=== PATIENT | female | born 1985 ===

== ENCOUNTER 2021-06-21 16:16 | Observation (INO) ==
[2021-06-21 17:34] LABS: ABS Eosinophils 0.1 10^3/ul (0-0.6); ABS Lymphocytes 1.4 10^3/ul (1.0-4.8); ABS Monocytes 0.8 10^3/ul (0-0.8); ABS Neutrophils 6.9 10^3/ul (1.5-7.7); Eosinophil % 0.7 %; Hematocrit 35 % (35-47); Hemoglobin 12.2 g/dL (12.0-16.0); Lymphocyte % 14.9 %; Mean Corpuscular HGB Conc 34 g/dL (31-36); Mean Corpuscular Hemoglobin 31 pg (27-31); Mean Corpuscular Volume 90 fL (80-97); Mean Platelet Volume 7.5 fL (7.4-10.4); Platelet Count 200 10^3/uL (150-450); Red Blood Count 3.95 10^6 /uL (3.70-4.87); Red Cell Distribution Width 14 % (10-15); White Blood Count 9.1 10^3/uL (3.5-10.8)
[2021-06-21 17:53] LABS: ALT 20 U/L (7-52); AST 14 U/L (13-39); Albumin 4.3 g/dL (3.2-5.2); Albumin/Globulin Ratio 2.4 (1-3); Alkaline Phosphatase 47 U/L (35-149); Anion Gap 7 mmol/L (2-11); Blood Urea Nitrogen 19 mg/dL (6-24); CO2 Carbon Dioxide 24 mmol/L (22-32); Calcium 9.2 mg/dL (8.6-10.3); Chloride 106 mmol/L (101-111); EGFR African American 120.5 (>60); EGFR Non-African American 99.6 (>60); Globulin 1.8 g/dL (2-4); Glucose 95 mg/dL (70-100); Potassium 3.8 mmol/L (3.5-5.0); Sodium 137 mmol/L (135-145); Total Protein 6.1 g/dL (6.4-8.9)
[2021-06-21 20:02] LABS: C Reactive Protein < 1.00 mg/L (<8.01)
[2021-06-21 20:28] LABS: Vitamin B12 464 pg/mL (180-914)
[2021-06-21 22:31] LABS: Erythrocyte Sed Rate 5 mm/Hr (0-19)
[2021-06-21 22:32] LABS: Rapid COVID-19 Molecular Undetected (Undetected)
[2021-06-21 23:47] LABS: Urine Benzodiazepine Screen None Detected (None Detect); Urine Cannabinoids Screen Presumptive Positive (None Detect); Urine Opiates Screen None Detected (None Detect)
[2021-06-22 00:13] LABS: Alcohol, S < 13 mg/dL (<13)
[2021-06-22] MEDS ORDERED: Nicotine GUM 4MG FRUIT FLAVOR PO PRN (08:11)
[2021-06-22] MEDS ORDERED: Nicotine PATCH 14 MG/24 HR PATCH TRANSDERM SCH (09:00)
[2021-06-22 11:51] VITALS: BP 139/83
== END 2021-06-22 13:20 | disposition home or self-care (01) ==
LOC: ED 16:16 → INTOOBSV 23:31 → MEDTELE 23:31
PROVIDERS: ADMIT Internal Medicine; ATTEND Internal Medicine